=== PATIENT | male | born 1975 | race Two or more races ===

== ENCOUNTER 2020-12-06 09:35 | Emergency (ER) | payer BC ==
[~2020-12-06] VITALS: Ht 170.2 cm; Wt 68.0 kg
[2020-12-06] MEDS ORDERED: SIMVASTATIN5 MG PO (09:47)
[2020-12-06] MEDS ORDERED: GLUMETZA500 MG PO (09:47)
[2020-12-06] MEDS ORDERED: UNITHROID50 MCG PO (09:48)
[2020-12-06] MEDS ORDERED: KETO10TA2 PO (12:29)
[2020-12-06] MEDS ORDERED: TAMS0.4C PO (12:29)
[2020-12-06] MEDS ORDERED: CIPRO500 MG PO (12:29)
== END 2020-12-06 12:42 | disposition home or self-care (01) ==
LOC: ER 09:35
DX: N20.0 Calculus of kidney (principal)